=== PATIENT | male | born 1940 | race Caucasian/White ===

== ENCOUNTER 2017-03-19 14:18 | Observation (INO) | payer OTHER ==
[~2017-03-19] VITALS: Ht 188 cm; Wt 123.6 kg
[~2017-03-19 14:18] MED LIST: ALLERGY RELIEF10 M1 PO; ASPIRIN81 M2 PO; ATIVAN0.5 MG PO; CAPSAICIN57 GM TP; COZAAR100 MG PO; GABAPENTIN300 MG PO; GLUCOPHAGE850 MG PO; HYTRIN5 MG PO; IMDUR30 MG PO; LONITEN2.5 MG PO; LOVASTATIN20 MG PO; MYSOLINE50 MG PO; NIACIN 500 MG1 EACH PO; PLAVIX75 MG PO; PROPRANOLOL HCL80 M1 PO; RANITIDINE HCL150 M1 PO; SERTRALINE HCL100 MG PO; SYNTHROID150 MCG PO; TYLENOL REGULA325 MG PO
[2017-03-19 15:17] LABS: HEMATOCRIT 33.3 % (38.0-50.0); MCH 31.5 PG (29.0-34.0); MCHC 34.8 G/DL (30.0-36.0); MCV 90.5 FL (86-99); MEAN PLAT.VOLUME 9.6 uM^3 (9.0-12.4); PLATELET COUNT 188 K/uL (156-360); RBC DIS.WIDTH-CV 13.4 % (11.8-14.6); RED BLOOD COUNT 3.68 M/uL (4.00-5.50); WHITE BLOOD COUNT 7.8 K/uL (4.1-10.2)
[2017-03-19 15:25] LABS: D-DIMER ELISA < 150.00 ng/mLDDU (<230)
[2017-03-19 15:33] LABS: CHLORIDE 103 mEq/L (99-109); POTASSIUM 3.1 mEq/L (3.7-5.4); SODIUM 141 mEq/L (136-147)
[2017-03-19 15:35] LABS: GLUCOSE 115 mg/dL (70-99)
[2017-03-19 15:37] LABS: ANION GAP 12 MEQ/L (2-14)
[2017-03-19 15:39] LABS: GFR ESTIMATE (CALCULATED) 42 mL/min/
[2017-03-19 15:40] LABS: UREA NITROGEN (BUN) 20 mg/dL (9-23)
[2017-03-19 15:45] LABS: TROP-I INTERPRETATION NEGATIVE; TROPONIN-I 0.02 ng/mL (0.0-0.30)
[2017-03-19] MEDS ORDERED: COUMADIN1 MG PO (19:05)
[2017-03-19] MEDS ORDERED: HYTRIN10 MG PO (19:06)
[2017-03-19] MEDS ORDERED: COUMADIN10 MG PO (19:06)
[2017-03-19] MEDS ORDERED: ZOLOFT100 MG PO (19:08)
[2017-03-19] MEDS ORDERED: WELLBUTRIN75 MG PO (19:09)
[2017-03-19] MEDS ORDERED: FERGON324 MG PO (19:10)
[2017-03-19] MEDS ORDERED: ONGLYZA5 MG PO (19:11)
[2017-03-19] MEDS ORDERED: CYANOCOBALAM1000 MCG PO (19:11)
[2017-03-19] MEDS ORDERED: FOLIC ACID1 MG PO (19:12)
[2017-03-19] MEDS ORDERED: SKIN TREATMENT225 GM TP (19:13)
[2017-03-19 19:14] LABS: MAGNESIUM 2.1 mg/dL (1.3-2.7)
[2017-03-19] MEDS ORDERED: ANALGESIC CREME85 GM TP (19:14)
[2017-03-19] MEDS ORDERED: THERAGEN60 GM TP (19:15)
[2017-03-19] MEDS ORDERED: VITAMIN D31000 UNI2 PO (19:16)
[2017-03-19] MEDS ORDERED: VOLTAREN 1% GE100 GM TP (19:18)
[2017-03-19] MEDS ORDERED: NEURONTIN300 MG PO (19:20)
[2017-03-19] MEDS ORDERED: FLOVENT DISKUS1 DIS2 IH (19:20)
[2017-03-19] MEDS ORDERED: HYDROCHLOROTHIA25 MG PO (19:21)
[2017-03-19] MEDS ORDERED: IMDUR30 MG PO (19:22)
[2017-03-19] MEDS ORDERED: SYNTHROID150 MCG PO (19:22)
[2017-03-19] MEDS ORDERED: CLARITIN,ALAVAR10 MG PO (19:23)
[2017-03-19] MEDS ORDERED: COZAAR100 MG PO (19:23)
[2017-03-19] MEDS ORDERED: NITROSTAT0.4 MG SL (19:24)
[2017-03-19] MEDS ORDERED: PROTONIX20 MG PO (19:25)
[2017-03-19] MEDS ORDERED: MYSOLINE50 MG PO (19:26)
[2017-03-19] MEDS ORDERED: MEVACOR40 MG PO (19:27)
[2017-03-19] MEDS ORDERED: LONITEN2.5 MG PO (19:28)
[2017-03-19] MEDS ORDERED: INDERAL LA80 MG PO (19:29)
[2017-03-19] MEDS ORDERED: GLUCOPHAGE500 MG PO (19:30)
[2017-03-19] MEDS ORDERED: HEMORRHOIDAL S1 EAC2 PR (19:32)
[2017-03-19] MEDS ORDERED: [UNRECOGNIZED DRUG - SUPPLY] TP (19:34)
[2017-03-19] MEDS ORDERED: ULTRAM50 MG PO (19:35)
[2017-03-19 20:06] VITALS: BP 121/67
[2017-03-19 21:00] LABS: INTER. NORMALIZED RATIO 2.4; PROTHROMBIN TIME 27.8 SEC (10.2-12.9)
[2017-03-19 21:19] LABS: TROP-I INTERPRETATION NEGATIVE; TROPONIN-I 0.04 ng/mL (0.0-0.30)
[2017-03-19 21:47] LABS: POINT-OF-CARE METER ID UU14162513
[2017-03-19] MEDS ORDERED: [UNRECOGNIZED DRUG - OTHER] TP (23:10)
[2017-03-19] MEDS ORDERED: FLONASE16 G1 BOTH NARES (23:19)
[2017-03-19] MEDS ORDERED: HYDROCORTISONE30 G4 PR (23:23)
[2017-03-19 23:30] VITALS: BP 108/54
[2017-03-20 03:40] LABS: HEMATOCRIT 29.8 % (38.0-50.0); MCH 31.8 PG (29.0-34.0); MCHC 34.6 G/DL (30.0-36.0); PLATELET COUNT 163 K/uL (156-360); RBC DIS.WIDTH-CV 13.8 % (11.8-14.6); RBC DIS.WIDTH-SD 46.3 % (39-53); RED BLOOD COUNT 3.24 M/uL (4.00-5.50); WHITE BLOOD COUNT 6.4 K/uL (4.1-10.2)
[2017-03-20 03:59] LABS: CHLORIDE 106 mEq/L (99-109); POTASSIUM 3.3 mEq/L (3.7-5.4); SODIUM 141 mEq/L (136-147)
[2017-03-20 04:01] LABS: GLUCOSE 127 mg/dL (70-99)
[2017-03-20 04:02] LABS: ANION GAP 11 MEQ/L (2-14)
[2017-03-20 04:03] VITALS: BP 94/55
[2017-03-20 04:05] LABS: GFR ESTIMATE (CALCULATED) 53 mL/min/
[2017-03-20 04:06] LABS: UREA NITROGEN (BUN) 20 mg/dL (9-23)
[2017-03-20 04:10] LABS: TROP-I INTERPRETATION NEGATIVE; TROPONIN-I 0.02 ng/mL (0.0-0.30)
[2017-03-20 04:45] LABS: INTER. NORMALIZED RATIO 2.5; PROTHROMBIN TIME 28.3 SEC (10.2-12.9)
[2017-03-20 08:31] VITALS: BP 101/55
[2017-03-20 08:32] VITALS: BP 100/55
[2017-03-20 08:33] VITALS: BP 95/54
[2017-03-20 11:04] VITALS: BP 117/63
[2017-03-20 13:12] LABS: ANION GAP 7 MEQ/L (2-14); CHLORIDE 105 MEQ/L (99-109); GFR ESTIMATE (CALCULATED) 57 mL/min/; GLUCOSE 97 mg/dL (70-99); POTASSIUM 3.7 MEQ/L (3.7-5.4); SAMPLE HEMOLYSIS CHECK 0; SAMPLE ICTERIC CHECK 0; SAMPLE LIPEMIA CHECK 0; SODIUM 141 MEQ/L (136-147); UREA NITROGEN (BUN) 17 mg/dL (9-23)
== END 2017-03-20 15:39 | disposition home or self-care (01) ==
LOC: EME 14:18 → 5WEST 18:00 → EDOF 18:00 → ENRESERV 18:02 → 5WEST 19:56
PROVIDERS: Emergency Medicine; Hospitalist; Physician Assistant
DX: R55 Syncope and collapse (principal); R07.9 Chest pain, unspecified; Z86.711 Personal history of pulmonary embolism; E11.9 Type 2 diabetes mellitus without complications; I10 Essential (primary) hypertension; E03.9 Hypothyroidism, unspecified; G47.33 Obstructive sleep apnea (adult) (pediatric); N17.9 Acute kidney failure, unspecified; Z79.01 Long term (current) use of anticoagulants; E78.5 Hyperlipidemia, unspecified; I25.10 Atherosclerotic heart disease of native coronary artery without angina pectoris; Z95.5 Presence of coronary angioplasty implant and graft; E87.6 Hypokalemia; E86.0 Dehydration; E66.9 Obesity, unspecified; Z82.49 Family history of ischemic heart disease and other diseases of the circulatory system; Z83.3 Family history of diabetes mellitus; Z83.49 Family history of other endocrine, nutritional and metabolic diseases; Z80.1 Family history of malignant neoplasm of trachea, bronchus and lung; Z79.82 Long term (current) use of aspirin; Z79.84 Long term (current) use of oral hypoglycemic drugs; Z88.5 Allergy status to narcotic agent
CPT/HCPCS: 71010; 80048; 80048 91; 82948; 83735; 84484; 85027; 85379; 85610; 93005; 94660; 99281; 99285; G0378; J7030; J7040; J7120